=== PATIENT | female | born 1990 | race Caucasian/White ===

== ENCOUNTER → 2023-09-18 | Outpatient (CLI) | payer SELFPAY ==
--- NOTE | 2023-09-18 13:00 | RAD_ITS ---
STUDY: X-RAY - RIGHT HAND, ATTENTION INDEX FINGER REASON FOR EXAM: Female, 32 years old. Acute pain after trauma TECHNIQUE: 3 view(s) of the finger were obtained. COMPARISON: None. FINDINGS: Normal metacarpal head. Normal metacarpophalangeal joint. Normal proximal phalanx. Normal middle phalanx. There is an acute, nondisplaced fracture of the distal tuft of the distal phalanx of the index finger. Normal proximal interphalangeal joint. Normal distal interphalangeal joint. Soft tissue swelling with soft tissue laceration noted. RAD/Finger(s) Min 2 Views IMPRESSION: Acute, nondisplaced fracture in the distal tuft of the distal phalanx of the index finger with associated soft tissue swelling and soft tissue laceration Electronically Signed: Nigel Anna MD at 13:15 EDT ,
== END | disposition home or self-care (01) ==
LOC: MTRAD 13:00
PROVIDERS: Referring Provider Physician Assistant; Visit Provider Physician Assistant
DX: S67.190A Crushing injury of right index finger, initial encounter (principal); X58.XXXA Exposure to other specified factors, initial encounter
CPT/HCPCS: 73140

== ENCOUNTER → 2023-10-11 | Outpatient (CLI) | payer OTHER, SELFPAY ==
--- NOTE | 2023-10-11 14:50 | RAD_ITS ---
STUDY: X-RAY - RIGHT HAND, ATTENTION INDEX FINGER REASON FOR EXAM: Female, 33 years old. Tuft fracture -- right index finger. TECHNIQUE: 3 views of the right index finger were obtained. COMPARISON: Right hand index finger radiographs dated 09/18/2023. FINDINGS: Normal metacarpal head. Normal metacarpophalangeal joint. Normal proximal phalanx. Normal middle phalanx. There is a persistent nondisplaced fracture of the distal tuft of the distal phalanx of the index finger. Normal proximal interphalangeal joint. Normal distal interphalangeal joint. RAD/Finger(s) Min 2 Views IMPRESSION: Persistent nondisplaced fracture of the distal tuft of the distal phalanx of the index finger. Electronically Signed: Demarco Thapa MD at 15:01 EDT ,
== END | disposition home or self-care (01) ==
PROVIDERS: Referring Provider Nurse Practitioner Family; Visit Provider Nurse Practitioner Family
DX: S62.630B Displaced fracture of distal phalanx of right index finger, initial encounter for open fracture (principal); X58.XXXA Exposure to other specified factors, initial encounter
CPT/HCPCS: 73140

== ENCOUNTER → 2023-10-19 | Outpatient (CLI) | payer OTHER, SELFPAY ==
--- NOTE | 2023-10-19 12:15 | RAD_ITS ---
INDICATION: Trauma EXAMINATION/TECHNIQUE: X-RAY - RIGHT HAND XR Fingers 3 VIEWS COMPARISON: FINDINGS: SOFT TISSUES: There soft tissue swelling. No radiopaque foreign body. BONES/JOINTS: There is a fracture through the tuft of the distal phalanx of the second finger.. Preservation of the joint space.. No sclerotic or destructive changes observed. RAD/Finger(s) Min 2 Views IMPRESSION: There is a fracture through the tuft of the distal phalanx of the second finger. Electronically Signed: Andres Sheldon DO at 17:51 EDT ,
== END | disposition home or self-care (01) ==
LOC: RAD 12:08
PROVIDERS: Referring Provider Surgery Plastic and Reconstructive Surgery; Visit Provider Surgery Plastic and Reconstructive Surgery
DX: S62.630B Displaced fracture of distal phalanx of right index finger, initial encounter for open fracture (principal); X58.XXXA Exposure to other specified factors, initial encounter
CPT/HCPCS: 73140

== ENCOUNTER → 2023-11-02 | Outpatient (CLI) | payer OTHER, SELFPAY ==
--- NOTE | 2023-11-02 17:10 | RAD_ITS ---
STUDY: X-RAY - RIGHT HAND, ATTENTION SECOND FINGER REASON FOR EXAM: Female, 33 years old. TRAUMA TECHNIQUE: 3 view(s) of the finger were obtained. COMPARISON: 10/19/2023 FINDINGS: Normal metacarpal head. Normal metacarpophalangeal joint. Normal proximal phalanx. Normal middle phalanx. Healing nondisplaced transverse fracture of the tuft of the distal phalanx. Normal proximal interphalangeal joint. Normal distal interphalangeal joint. RAD/Finger(s) Min 2 Views IMPRESSION: Healing fracture of the tuft of the distal phalanx. Electronically Signed: Jimmie Ortiz MD at 20:05 EDT ,
== END | disposition home or self-care (01) ==
LOC: RAD 16:56
PROVIDERS: Referring Provider Surgery Plastic and Reconstructive Surgery; Visit Provider Surgery Plastic and Reconstructive Surgery
DX: S62.630B Displaced fracture of distal phalanx of right index finger, initial encounter for open fracture (principal); X58.XXXA Exposure to other specified factors, initial encounter
CPT/HCPCS: 73140

== ENCOUNTER 2024-01-02 17:30 | Outpatient (RCR) | payer OTHER, SELFPAY ==
--- NOTE | 2023-12-06 13:50 | HP.OTEVAL_ITS ---
Patient's Visit Information Visit Information Visit Information: SHIRLEY LOTT is a 33 year old F, referred to Occupational Therapy by Dr. Temo Peng MD, with a diagnosis of Open fracture of distal phalanx of right index finger, Laceration of right. Date of Evaluation: 12/06/23 Occupational Therapist: Kat Andersen, AUDREY/Jose, CHT Subjective Subjective: This 33 year old female was seen for OT eval with dx of Open fracture of distal phalanx of right index finger, Laceration of right index finger with damage to nail. pt states this happened 2023. 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 Pt would like to straighten her finger more and return to IND with work tasks. 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 Goal:: pt will demo a increase in PIP -5* or less by d/c demo a functional PIP extension by d.c. pt will demo a increase in DIP - 5* or less by d/c demo a increase in functional DIP ROM by d.c Rehabilitation General Assessment: pt demo with a decrease in right IF ROM following a right finger injury. this has limited her functional ROM and strength to perform work and daily tasks. Pt demo need for skilled OT services 2x week 6 weeks. Today therapist ed.pt on reverse blocking to improve her PIP and DIP ext. pt demo understanding and agree to POC. Rehabilitation Potential: Good Anticipated Interventions Anticipated Interventions: A/AAROM/PROM, Strengthening, Triggerpoint Release, Desensitization, Modalities, Orthoses, Joint Protection/Energy Conservation, Ergonomic Education, Education re assistive Equipment, Education re Diagnosis and Home Program Visit Plan Frequency: 2x /Week Duration: 6 Weeks TEXT: Thank you for the opportunity to evaluate your patient. For Medicare and Medicare HMO plans, please review the plan of care and approve it. It will need to be FAXED BACK to us at [phone] for Medicare purposes. Please let me know if there are questions or concerns regarding this plan of care. Physician Signature: Da te:
--- NOTE | 2023-12-31 18:56 | OTREVAL_ITS ---
Re-Evaluation Intro: Dr. Temo Peng MD, It has been my pleasure to treat SHIRLEY LOTT over the last 8 visits for Open fracture of distal phalanx of right index finger, Laceration of right. Please see the progress note below for an update on the occupational therapy plan of care! Subjective Subjective: pt arrives to session- feels her finger is doing well using right hand for all ADLs ready to be released to full duty at work Objective Objective/Function: PIP -10/110 ( PIP ext -5/110) increase from-35* ext DIP -5/50 right appeals assistant strength 65# left is 70# right lateral pinch 18# right tripod pinch 14# pt doing well Plan Plan Plan: pt to return to dr for full release to work will cont with HEP as pt made great gains- pt demo understanding of HEP Goals Goals Patient Goals: Regain Mobility and Use Hand/Wrist/Arm Normally Again Goal:: pt will demo a increase in right appeals assistant strength by 10# to return pt to her PLOF . Goal:: pt will demo a increase in PIP -5* or less by d/c demo a functional PIP extension by d.c. pt will demo a increase in DIP - 5* or less by d/c demo a increase in functional DIP ROM by d.c Anticipated Interventions Anticipated Interventions Anticipated Interventions: A/AAROM/PROM, Strengthening, Triggerpoint Release, Desensitization, Modalities, Orthoses, Joint Protection/Energy Conservation, Ergonomic Education, Education re assistive Equipment, Education re Diagnosis and Home Program Re-Evaluation Ending Re-evaluation ending: Please do not hesitate to contact me at [phone] by phone or if you have questions or concerns regarding this new plan of care! Sincerely, Kat Andersen, OTR/L, CHT
--- NOTE | 2024-01-02 17:59 | HP.OTDCSUM ---
Discharge Summary D/C Summary: It has been my pleasure to treat SHIRLEY LOTT under orders from Dr. Temo Peng MD, for the diagnosis of Open fracture of distal phalanx of right index finger, Laceration of right for a total of 9 visit(s). Please see the following information for a summary of their discharge status. 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 R hand now 65# Goal:: pt will demo a increase in PIP -5* or less by d/c demo a functional PIP extension by d.c. GOAL MET pt will demo a increase in DIP - 5* or less by d/c demo a increase in functional DIP ROM by d.c GOAL MET Plan Plan: pt to return to dr for full release to work will cont with HEP as pt made great gains- pt demo understanding of HEP D/C Information Discharge Comments: This 33 year old female seen for dx of R IF open fx and stiffness. pt seen in POC for pain management, healing, positioning as well as ROM in order to return to functional use of R hand. pt progressed in POC and is now released back to work. discharge from OT services at this time pt in agreeance. d/c sentence: If there are questions or concerns regarding this patient's occupational therapy, please fell free to call me at [phone]. Thank you for the referral of this patient. Sincerely, Sinai rFanklin
--- NOTE | 2024-01-02 17:59 | HP.OT.NRP ---
Patient Information Patient Information: SHIRLEY LOTT was seen in my office for initial evaluation on 12/06/23. The following Plan of Care was established for this patient: POC Established Initial Frequency: 2x /Week Initial Duration: 6 Weeks Plan: pt to return to dr for full release to work will cont with HEP as pt made great gains- pt demo understanding of HEP Anticipated Interventions Anticipated Interventions: A/AAROM/PROM, Strengthening, Triggerpoint Release, Desensitization, Modalities, Orthoses, Joint Protection/Energy Conservation, Ergonomic Education, Education re assistive Equipment, Education re Diagnosis and Home Program Last Seen Last Seen: This patient was last seen in our office 01/02/24. Pertinent comments regarding their Occupational therapy will appear below: This 33 year old female seen for dx of R IF open fx and stiffness. pt seen in POC for pain management, healing, positioning as well as ROM in order to return to functional use of R hand. pt progressed in POC and is now released back to work. discharge from OT services at this time pt in agreeance. At this point I will be discontinuing this patient from occupational therapy. I would be happy to see this patient again in the future if found appropriate by the physician. Thank you! Sinai Franklin
== END 2024-01-02 19:00 | disposition home or self-care (01) ==
LOC: OT 17:30
PROVIDERS: Referring Provider Surgery Plastic and Reconstructive Surgery; Visit Provider Surgery Plastic and Reconstructive Surgery
DX: S61.310D Laceration without foreign body of right index finger with damage to nail, subsequent encounter (principal); S62.630B Displaced fracture of distal phalanx of right index finger, initial encounter for open fracture
CPT/HCPCS: 97110; 97140; 97166; 97530